=== PATIENT | male | born 1940 | race African-American/Black ===

== ENCOUNTER 2017-11-21 13:12 | Emergency (ER) | payer OTHER ==
[2017-11-21] MEDS ORDERED: NS 0.9% 1000 ML* 1,000 ML IV ONE (14:23)
[2017-11-21 14:55] LABS: ABS Basophils 0 10^3/ul (0-0.2); ABS Eosinophils 0 10^3/ul (0-0.6); ABS Lymphocytes 1.3 10^3/ul (1.0-4.8); ABS Monocytes 0.6 10^3/ul (0-0.8); ABS Neutrophils 6.3 10^3/ul (1.5-7.7); ABS Nucleated RBC 0 10^3/ul; Eosinophil % 0.2 % (0-6); Hematocrit 37 % (42-52); Hemoglobin 12.4 g/dl (14.0-18.0); Lymphocyte % 15.7 % (25-47); Mean Corpuscular HGB Conc 33 g/dl (31-36); Mean Corpuscular Hemoglobin 32 pg (27-31); Mean Corpuscular Volume 97 fL (80-94); Mean Platelet Volume 8.4 um3 (7.4-10.4); Nucleated Red Blood Cells % 0.1; Platelet Count 224 10^3/ul (150-450); Red Blood Count 3.85 10^6/ul (4.0-5.4); Red Cell Distribution Width 15 % (10.5-15); White Blood Count 8.2 10^3/ul (3.5-10.8)
[2017-11-21 15:00] LABS: INR 1.03 (0.77-1.02)
[2017-11-21 15:08] LABS: EGFR Non-African American 44.1 (>60)
--- NOTE | 2017-11-21 15:14 | RAD ---
INDICATION: Abdominal pain, weight loss. COMPARISON: Comparison is made with a prior chest x-ray study from April 03, 2016. TECHNIQUE: A portable view of the chest was obtained. FINDINGS: Cardiac and mediastinal contours appear to be within normal limits. There is mild prominence of the interstitial markings at the lung bases which appears unchanged. The lungs are otherwise clear. No pleural effusion is seen. IMPRESSION: NO EVIDENCE FOR ACUTE DISEASE.
[2017-11-21] MEDS ORDERED: KCL 20 MEQ/100 ML IVPREMIX* 20 MEQ/100 ML BAG IV ONE (15:28)
[2017-11-21] MEDS ORDERED: Iodixanol* (CONTRAST) 320 MG/ML 100 ML SDV IV ONE (15:36)
[2017-11-21] MEDS ORDERED: Potassium Chloride IV* 20 MEQ in NS 0.9% 100 ML* 100 ML IVPB ONE (16:00)
--- NOTE | 2017-11-21 18:01 | RAD ---
Indication: Left lower quadrant pain, diverticulitis. Contrast: Administered 100.0 ml of Contrast -- mg/ml CT of the abdomen and pelvis was performed after oral and IV contrast administration. The lung bases demonstrate some scarring in the periphery of the lower lobes bilaterally. The heart demonstrates no pericardial effusion. Liver is normal in size. Nonspecific 5 mm low density is noted in the medial left lobe of liver. This is too small to accurately characterize. No other focal lesions or intrahepatic ductal dilatation is noted. Spleen is normal in size. No adrenal lesions are noted. The pancreas demonstrates no mass or pancreatic ductal dilatation. The patient is status post cholecystectomy. The kidneys demonstrate symmetric nephrograms without hydronephrosis. Cortical cysts are noted in the right kidney measuring up to 13 mm. No hydronephrosis is noted. 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 No retroperitoneal adenopathy is noted. No dilated loops of bowel are noted. There is contrast in the right colon. Fluid is noted throughout the colon. The possibility of enteritis should be considered. No focal wall thickening of the colonic wall is noted. The urinary bladder is unremarkable. Prostate demonstrates a defect likely due to prior transurethral resection. No pelvic masses are noted. IMPRESSION: Low density lesion in the left lobe of the liver nonspecific. Fluid is noted throughout the colon. The possibility of enteritis should BE considered. There is no flow detected in the left external iliac artery without femoral artery to femoral artery bypass graft.
[2017-11-21] MEDS ORDERED: Potassium Chlor TAB* 20 MEQ TAB.ER PO ONE ×2 (18:58→20:36)
[2017-11-21 19:27] LABS: Urine Appearance Cloudy; Urine Blood 3+ (Negative); Urine Color Yellow; Urine Ketones Negative (Negative); Urine Protein 1+(30 mg/dL) (Negative); Urine Specific Gravity 1.043 (1.010-1.030); Urine Urobilinogen Negative (Negative)
[2017-11-21] MEDS ORDERED: Levofloxacin TAB* 500 MG PO ONE (20:10)
[2017-11-21 20:53] VITALS: BP 106/67
--- NOTE | 2017-11-21 20:56 | ED ---
Octavio Frausto Stephanie, scribed for Guzman Schuler on 11/21/17 at 1428 . Abdominal Pain/Male - HPI Summary HPI Summary: The pt is a 77 y/o M presenting to the ED abd pain that began 10/22/17. Symptoms include N/V and general weakness. The pt states he has lost 45 lbs since July 2017. The pt denies CP and SOB. - History of Current Complaint Chief Complaint: EDNauseaVomitDiarrh Stated Complaint: N/V/D Time Seen by Provider: 11/21/17 13:58 Hx Obtained From: Patient Onset/Duration: Gradual Onset, Lasting Weeks - 4, Still Present Timing: Constant Severity Currently: Mild Pain Intensity: 0 Pain Scale Used: 0-10 Numeric Location: Discrete At: RLQ, Discrete At: LLQ Radiates: No Aggravating Factor(s): Nothing Alleviating Factor(s): Nothing Associated Signs And Symptoms: Positive: Nausea, Vomiting - Allergies/Home Medications Allergies/Adverse Reactions: Allergies Allergy/AdvReac Type Severity Reaction Status Date / Time No Known Allergies Allergy Verified 11/21/17 13:28 Home Medications: Home Medications Allopurinol TAB* [Zyloprim 300 MG TAB*] 300 mg PO DAILY 11/21/17 [History Confirmed 11/21/17] Amitriptyline TAB* [Elavil TAB*] 10 mg PO BEDTIME 11/21/17 [History Confirmed ] Ferrous Sulfate TAB* 325 mg PO DAILY 11/21/17 [History Confirmed 11/21/17] Furosemide TAB* [Lasix TAB*] 60 mg PO DAILY 11/21/17 [History Confirmed 11/21/17 ] Insulin GLARGINE(*) [Lantus(*)] 20 units SUBCUT DAILY 11/21/17 [History Confirmed 11/21/17] Insulin REGULAR(*) 2 - 12 units SUBCUT ACHS 11/21/17 [History Confirmed 11/21/17 ] Lidocaine/Menthol [Lidopatch Pain Relief 3.99-1.25 %] 2 patch TOPICAL DAILY [History Confirmed 11/21/17] Mesalamine CAP (NF) [Delzicol (NF)] 1,200 mg PO BID 11/21/17 [History Confirmed 11/21/17] Metoprolol Tartrate TAB* [Lopressor TAB*] 25 mg PO BID 11/21/17 [History Confirmed 11/21/17] Minerin Cream* [Minerin*] 1 applic TOPICAL BID 11/21/17 [History Confirmed 11/21] Nabumetone TAB* [Relafen TAB*] 500 mg PO BID 11/21/17 [History Confirmed ] Omeprazole CAP* [Prilosec CAP* 20 MG] 20 mg PO DAILY 11/21/17 [History Confirmed 11/21/17] Psyllium ALEXANDRA* [Metamucil ALEXANDRA*] 1 pkt PO DAILY 11/21/17 [History Confirmed ] Tamsulosin CAP* [Flomax CAP*] 0.4 mg PO BEDTIME 11/21/17 [History Confirmed ] Tolnaftate [Tinactin] 1 % TOPICAL DAILY 11/21/17 [History Confirmed 11/21/17] Verapamil SR CAP* [Calan Sr CAP*] 180 mg PO DAILY 11/21/17 [History Confirmed ] carBAMazepine CHEW TAB(*) [TEGretol CHEW TAB(*)] 100 mg PO BID 11/21/17 [ History Confirmed 11/21/17] PMH/Surg Hx/FS Hx/Imm Hx Endocrine/Hematology History: Reports: Hx Anemia - HX OF Cardiovascular History: Reports: Hx Hypertension - WELL CONTROLLED PER PT GI History: Reports: Hx Gastroesophageal Reflux Disease Musculoskeletal History: Reports: Hx Arthritis Sensory History: Reports: Hx Contacts or Glasses, Hx Hearing Aid - BILAT Opthamlomology History: Reports: Hx Contacts or Glasses Neurological History: Reports: Hx Seizures - PER PT NO SEIZURE MEDS Psychiatric History: Reports: Hx Depression - Cancer History Hx Chemotherapy: No - Surgical History Surgery Procedure, Year, and Place: GF Hx Anesthesia Reactions: No Infectious Disease History: No Infectious Disease History: Denies: Traveled Outside the [place] in Last 30 Days - Family History Known Family History: Negative: Renal Disease - Social History Occupation: Unemployed Lives: [facility] - prisoner Alcohol Use: None Hx Substance Use: No Substance Use Type: Reports: None Hx Tobacco Use: Yes Smoking Status (MU): Former Smoker Review of Systems Negative: Fever Positive: Abdominal Pain, Vomiting, Nausea Negative: Slurred Speech All Other Systems Reviewed And Are Negative: Yes Physical Exam - Summary Physical Exam Summary: Appearance: Well appearing, no pain distress Skin: warm, dry, reflects adequate perfusion Head/face: normal Eyes: EOMI, JEN ENT: normal Neck: supple, non-tender Respiratory: CTA, breath sounds present Cardiovascular: RRR, pulses symmetrical Abdomen: tenderness in RLQ and LLQ, soft Bowel: present Musculoskeletal: normal, strength/ROM intact Neuro: normal, sensory motor intact, A&Ox3 Triage Information Reviewed: Yes Vital Signs On Initial Exam: Initial Vitals Temp Pulse Resp BP Pulse Ox 97.4 F 71 18 93/75 98 11/21/17 13:20 11/21/17 13:20 11/21/17 13:20 11/21/17 13:20 11/21/17 13:20 Vital Signs Reviewed: Yes Diagnostics - Vital Signs Vital Signs Temp Pulse Resp BP Pulse Ox 11/21/17 14:01 80 99 11/21/17 13:59 80 141/88 99 11/21/17 13:20 97.4 F 71 18 93/75 98 - Laboratory Lab Results: Lab Results 11/21/17 11/21/17 11/21/17 Range/Units 14:30 14:30 14:30 WBC (3.5-10.8) 10^3/ul RBC (4.0-5.4) 10^6/ul Hgb (14.0-18.0) g/dl Hct (42-52) % MCV (80-94) fL MCH (27-31) pg MCHC (31-36) g/dl RDW (10.5-15) % Plt Count (150-450) 10^3/ul MPV (7.4-10.4) um3 Neut % (Auto) (38-83) % Lymph % (Auto) (25-47) % Randall % (Auto) (0-7) % Eos % (Auto) (0-6) % Baso % (Auto) (0-2) % Absolute Neuts (auto) (1.5-7.7) 10^3/ul Absolute Lymphs (auto) (1.0-4.8) 10^3/ul Absolute Monos (auto) (0-0.8) 10^3/ul Absolute Eos (auto) (0-0.6) 10^3/ul Absolute Basos (auto) (0-0.2) 10^3/ul Absolute Nucleated RBC 10^3/ul Nucleated RBC % INR (Anticoag Therapy) 1.03 H (0.77-1.02) APTT 26.2 (26.0-36.3) seconds Sodium 135 L (139-145) mmol/L Potassium 2.9 L (3.5-5.0) mmol/L Chloride 95 L (101-111) mmol/L Carbon Dioxide 27 (22-32) mmol/L Anion Gap 13 H (2-11) mmol/L BUN 22 (6-24) mg/dL Creatinine 1.54 H (0.67-1.17) mg/dL Est GFR ( Amer) 56.8 (>60) Est GFR (Non-Af Amer) 44.1 (>60) BUN/Creatinine Ratio 14.3 (8-20) Glucose 110 H (70-100) mg/dL Lactic Acid 1.5 (0.5-2.0) mmol/L Calcium 10.5 H (8.6-10.3) mg/dL Total Bilirubin 0.40 (0.2-1.0) mg/dL AST 22 (13-39) U/L ALT 12 (7-52) U/L Alkaline Phosphatase 78 (34-104) U/L Troponin I 0.02 (<0.04) ng/mL Total Protein 8.2 (6.4-8.9) g/dL Albumin 3.7 (3.2-5.2) g/dL Globulin 4.5 H (2-4) g/dL Albumin/Globulin Ratio 0.8 L (1-3) Lipase 22 (11.0-82.0) U/L Urine Color Urine Appearance Urine pH (5-9) Ur Specific [place] (1.010-1.030) Urine Protein (Negative) Urine Ketones (Negative) Urine Blood (Negative) Urine Nitrate (Negative) Urine Bilirubin (Negative) Urine Urobilinogen (Negative) Ur Leukocyte Esterase (Negative) Urine WBC (Auto) (Absent) Urine RBC (Auto) (Absent) Urine Bacteria (Absent) Urine Glucose (Negative) 11/21/17 11/21/17 Range/Units 14:30 18:52 WBC 8.2 (3.5-10.8) 10^3/ul RBC 3.85 L (4.0-5.4) 10^6/ul Hgb 12.4 L (14.0-18.0) g/dl Hct 37 L (42-52) % MCV 97 H (80-94) fL MCH 32 H (27-31) pg MCHC 33 (31-36) g/dl RDW 15 (10.5-15) % Plt Count 224 (150-450) 10^3/ul MPV 8.4 (7.4-10.4) um3 Neut % (Auto) 76.9 (38-83) % Lymph % (Auto) 15.7 L (25-47) % Randall % (Auto) 7.0 (0-7) % Eos % (Auto) 0.2 (0-6) % Baso % (Auto) 0.2 (0-2) % Absolute Neuts (auto) 6.3 (1.5-7.7) 10^3/ul Absolute Lymphs (auto) 1.3 (1.0-4.8) 10^3/ul Absolute Monos (auto) 0.6 (0-0.8) 10^3/ul Absolute Eos (auto) 0 (0-0.6) 10^3/ul Absolute Basos (auto) 0 (0-0.2) 10^3/ul Absolute Nucleated RBC 0 10^3/ul Nucleated RBC % 0.1 INR (Anticoag Therapy) (0.77-1.02) APTT (26.0-36.3) seconds Sodium (139-145) mmol/L Potassium (3.5-5.0) mmol/L Chloride (101-111) mmol/L Carbon Dioxide (22-32) mmol/L Anion Gap (2-11) mmol/L BUN (6-24) mg/dL Creatinine (0.67-1.17) mg/dL Est GFR ( Amer) (>60) Est GFR (Non-Af Amer) (>60) BUN/Creatinine Ratio (8-20) Glucose (70-100) mg/dL Lactic Acid (0.5-2.0) mmol/L Calcium (8.6-10.3) mg/dL Total Bilirubin (0.2-1.0) mg/dL AST (13-39) U/L ALT (7-52) U/L Alkaline Phosphatase (34-104) U/L Troponin I (<0.04) ng/mL Total Protein (6.4-8.9) g/dL Albumin (3.2-5.2) g/dL Globulin (2-4) g/dL Albumin/Globulin Ratio (1-3) Lipase (11.0-82.0) U/L Urine Color Yellow Urine Appearance Cloudy Urine pH 6.0 (5-9) Ur Specific [place] 1.043 H (1.010-1.030) Urine Protein 1+(30 mg/dl) A (Negative) Urine Ketones Negative (Negative) Urine Blood 3+ A (Negative) Urine Nitrate Negative (Negative) Urine Bilirubin Negative (Negative) Urine Urobilinogen Negative (Negative) Ur Leukocyte Esterase 3+ A (Negative) Urine WBC (Auto) 3+(>20/hpf) A (Absent) Urine RBC (Auto) 3+(>10/hpf) A (Absent) Urine Bacteria Absent (Absent) Urine Glucose Negative (Negative) Result Diagrams: 11/21/17 14:30 11/21/17 14:30 Lab Statement: Any lab studies that have been ordered have been reviewed, and results considered in the medical decision making process. - Radiology CXR Xray Interpretation: No Acute Changes Radiology Interpretation Completed By: Radiologist - NO EVIDENCE FOR ACUTE DISEASE. ED physician has reviewed this report. - CT Abdomen/Pelvis CT Interpretation: Positive (See Comments) CT Interpretation Completed By: Radiologist - Low density lesion in the left lobe of the liver nonspecific. Fluid is noted throughout the colon. The possibility of enteritis should BE considered. There is no flow detected in the left external iliac artery without femoral artery to femoral artery bypass graft. ED physician has reviewed this report. - EKG 14:33 Cardiac Rate: NL EKG Rhythm: Sinus Rhythm - 81 BPM EKG Interpretation: RBBB Re-Evaluation - Re-Evaluation First Eval Re-Evaluation Time: 19:49 Change: Unchanged - The pt's pain remains the same. ED physician discussed plan of discharge with the pt and the pt understands. Abdominal Pain Fem Course/Dx - Course Course Of Treatment: The pt is a 77 y/o M presenting to the ED abd pain that began 10/22/17. Symptoms include N/V and general weakness. The pt states he has lost 45 lbs since July 2017. The pt denies CP and SOB. CT abdomen/pelvis is negative. ED physician discussed with vascular surgeon at [facility] about femoral bipass and agree that nothing must be done at this time in reference to bipass. The pt will be discharged with UTI. - Diagnoses Differential Diagnosis/HQI/PQRI: Appendicitis, Diverticulitis, Pancreatitis, Renal Colic, Urinary Tract Infection Provider Diagnoses: UTI (urinary tract infection) Discharge - Sign-Out/Discharge Documenting (check all that apply): Discharge/Admit/Transfer - discharge - Discharge Plan Condition: Stable Disposition: HOME Prescriptions: Levofloxacin TAB* [Levaquin TAB*] 500 mg PO DAILY #9 tab Patient Education Materials: Urinary Tract Infection in Men (ED) Referrals: Valentin SUBSEA ENGINEER,Juliet Maradiaga [Primary Care Provider] - 2 Days Additional Instructions: Return to the ED for new or worsening symptoms. - Billing Disposition and Condition Condition: STABLE Disposition: HOME The documentation as recorded by the Octavio juarez Stephanie accurately reflects the service I personally performed and the decisions made by Harini urban Emmanuel.
== END 2017-11-21 20:52 | disposition home or self-care (01) ==
LOC: ED 13:12
DX: N39.0 Urinary tract infection, site not specified (principal); I45.10 Unspecified right bundle-branch block; I10 Essential (primary) hypertension; K21.9 Gastro-esophageal reflux disease without esophagitis; F32.9 Major depressive disorder, single episode, unspecified; Z87.891 Personal history of nicotine dependence; K76.9 Liver disease, unspecified
CPT/HCPCS: 36415; 71045; 74177; 80053; 81003; 81015; 83605; 83690; 84484; 85025; 85610; 85730; 87086; 93005; 96360; 96374; 96375; 99284; A9270-GY; J3480; Q9967